=== PATIENT | male | born 1975 | race Hispanic/Latino ===

== ENCOUNTER 2025-04-01 21:15 | Emergency (ER) | payer OTHER, SELFPAY ==
[2025-04-01] MEDS ORDERED: MULTIVITAMINS 10 ML VIAL (INJ) IV ONE (22:14)
[2025-04-01] MEDS ORDERED: NA CHLORIDE 0.9% 2,000 ML ONE (22:14)
[2025-04-01] MEDS ORDERED: THIAMINE 200 MG/2 ML INJ ONE (22:16)
[2025-04-01] MEDS ORDERED: FOLIC ACID 5 MG/ML VIAL ONE ×2 (22:18→22:22)
[2025-04-01 22:33] LABS: Absolute Lymphocytes (CBC) 2.2 K/uL (0.7-4.9); Hematocrit 39.8 % (39.6-49.0); Hemoglobin 13.5 g/dL (13.6-17.9); MCH 30.6 pg (27.0-35.0); MCHC 34.0 g/dL (32.0-36.0); MCV 89.9 fL (80-100); MPV 8.8 fL (7.6-11.3); Nucleated RBC Absolute Count 0.0 (0-0); Nucleated Red Blood Cells % 0.0 % (0-0); PT Prothrombin Time 11.6 SECONDS (10-13.0); PTT, Activated Partial Thromb 29.6 SECONDS (27.2-37.4); Protime INR 1.03; RBC Red Blood Cell Count 4.42 M/uL (4.33-5.43); White Blood Count 6.50 thou/uL (4.3-10.9)
[2025-04-01 22:48] LABS: ALT/SGPT 26 U/L (16-61); AST/SGOT 26 U/L (15-37); Albumin 3.5 g/dL (3.4-5.0); Albumin/Globulin Ratio 1.0 (1.1-1.8); Alkaline Phosphatase 45 U/L (45-117); Anion Gap 6.8 mEq/L (5.0-15.0); BUN Blood Urea Nitrogen 18 mg/dL (7-18); Bilirubin Indirect, Calculated 0.7 mg/dL (0.2-0.8); Globulin 3.5 g/dL (2.3-3.5); Glucose Level 121 mg/dL (74-106); METHAMPHETAM NEGATIVE (NEGATIVE); Potassium 3.8 mEq/L (3.5-5.1); THC Cannibis NEGATIVE (NEGATIVE)
--- NOTE | 2025-04-01 23:01 | EDPHYS ---
Physician Documentation [facility] Name: Herman Betts Age: 49 yrs Sex: Male : 1975 Arrival Date: 04/01/2025 Time: 21:15 Bed 15 Private MD: ED Physician Toni Gutierrez HPI: 04/01 22:54 This 49 yrs old Male presents to ER via Law Enforcement with complaints of sb4 Psych Problem. 04/02 01:59 Patient was brought in via EMS with an ZEFERINO in place stating " appears stressed, sb4 paranoia, states a fear of police, wants to make a report to [facility] police, has no means of transport. Brother states he talks to himself, bipolar, schizophrenic, has violence with officers. Subject stated he was "waiting for them to land "would not explain who was landing. Patient is calm and cooperative upon arrival to the ED, denies any suicidal or homicidal ideation. Historical: - Allergies: 04/01 21:55 No Known Allergies; af3 - Home Meds: 21:55 None [Active]; af3 - PMHx: 04/02 00:00 Schizophrenia; Bipolar disorder; kd3 - Immunization history:: Adult Immunizations unknown. - Infectious Disease History:: Denies. - Social history:: Smoking status: unknown. ROS: 02:10 Constitutional: Negative for fever, chills, and weight loss, sb4 02:10 All other systems are negative, Exam: 02:10 Constitutional: This is a well developed, well nourished patient who is awake, alert, sb4 and in no acute distress. Head/Face: Normocephalic, atraumatic. Eyes: Extra-ocular motions intact. Periorbital areas with no swelling, redness, or edema. ENT: Mucous membranes moist. Respiratory: No increased work of breathing, no retractions or nasal flaring. Skin: Warm, dry with normal turgor. Normal color with no rashes, no lesions, and no evidence of cellulitis. 02:10 Psych: Behavior/mood is cooperative, Affect is calm, Oriented to person, place, time, Patient has no thoughts/intents to harm self or others. Vital Signs: 04/01 21:19 BP 149 / 96; Pulse 86; Resp 16; Temp 98.2; Pulse Ox 99% on R/A; af3 04/02 00:28 af3 00:28 Pt refused vitals af3 MDM: 04/01 21:20 Medical Screening Exam initiated sb4 04/02 02:10 Data reviewed: vital signs, nurses notes, lab test result(s), and as a result, I will sb4 discharge patient. Historians other than the Patient: Law enforcement: Arnulfo LOAIZA, officer [employer]co Gentile. Care significantly affected by the following Social Determinants of Health: Poor access to healthcare and/or lack of insurance, Poor access to transportation, Inadequate housing, Problems related to primary support group. Counseling: I had a detailed discussion with the patient and/or guardian regarding the historical points, exam findings, and any diagnostic results supporting the discharge/admit diagnosis, lab results, the need for outpatient follow up, for definitive care, to return to the emergency department if symptoms worsen or persist or if there are any questions or concerns that arise at home. ED course: Patient is not suicidal or homicidal. He displays appropriate decision-making skills. He does have a history of bipolar and schizophrenia but he is not in any acute crisis at this time. Will discharge at this time with community resources. 04/01 21:20 Order name: Acetaminophen; Complete Time: 23:00 sb4 04/01 21:20 Order name: Basic Metabolic Panel; Complete Time: 23:00 sb4 04/01 21:20 Order name: CBC with Diff; Complete Time: 22:47 sb4 04/01 21:20 Order name: ETOH Level; Complete Time: 22:47 sb4 04/01 21:20 Order name: Hepatic Function; Complete Time: 23:00 sb4 04/01 21:20 Order name: PT-INR; Complete Time: 22:33 sb4 04/01 21:20 Order name: Ptt, Activated; Complete Time: 22:33 sb4 04/01 21:20 Order name: Salicylate; Complete Time: 22:47 sb4 04/01 21:20 Order name: Urine Drug Screen; Complete Time: 22:52 sb4 04/01 21:20 Order name: EKG - Nurse/Tech; Complete Time: 22:17 sb4 04/01 21:20 Order name: IV Saline Lock; Complete Time: 22:17 sb4 04/01 21:20 Order name: Labs collected and sent; Complete Time: 22:17 sb4 04/01 21:20 Order name: Suicide Screening (Jeet); Complete Time: 22:17 sb4 EC04/01 22: Rate is 78 beats/min. Rhythm is regular, Sinus Rhythm. AL interval is normal at 172 sb4 msec. QRS interval is normal at 103 msec. QT interval is normal at 362 msec. No Q waves. T waves are Normal. No ST changes noted. Interpreted by me. Reviewed by me. Administered Medications: 22: Drug: NS 0.9% IV 1000 ml IV at 1000 ml once; to be given as a bolus over 60 minutes af3 Route: IV; Rate: 1000 ml; Site: right antecubital; 04/02 00:27 Follow up: Response: No adverse reaction; IV Status: Completed infusion; IV Intake: af3 1000ml 04/01 22:29 Drug: Banana Bag - (Multivitamin IV 1 amp, NS 0.9% IV 1000 ml, Thiamine IV 100 mg, af3 foLIC Acid IVPB 1 mg) IV at calculated rate once Route: IV; Rate: calculated rate; Site: right antecubital; 04/02 00:27 Follow up: Response: No adverse reaction; IV Status: Completed infusion; IV Intake: af3 1000ml Disposition: 20:13 Co-signature as Attending Physician, Toni Gutierrez MD I agree with the assessment sp4 and plan of care. I reviewed the patient's care provided by Advanced Practice Provider \\T\\ agree w/ the diagnosis \\T\\ care plan. I personally saw the pt \\T\\ performed a substantive portion of the visit, incldng all aspects of the (History/Exam/Medical Decision Making). Disposition Summary: 04/01/25 23:00 Discharge Ordered Notes: Location: Home sb4 Problem: new sb4 Symptoms: have improved sb4 Condition: Stable sb4 Diagnosis - Bipolar disorder, unspecified sb4 - Schizophrenia, unspecified sb4 Followup: sb4 - With: Private Physician - When: As needed - Reason: Recheck today's complaints, Re-evaluation by your physician Discharge Instructions: - Discharge Summary Sheet sb4 Forms: - Patient Portal Instructions sb4 - Leadership Thank You Letter sb4 Signatures: Dispatcher LeeMarilyn Reagan RN RN kd3 Jammie Monique PA-C PA-C sb4 Toni Gutierrez MD MD sp4 Tanya Neil RN RN af3 Corrections: (The following items were deleted from the chart) 04/01 21:21 21:21 ACETAMINOPHEN+C.LAB.BRZ ordered. EDMS EDMS 21:21 21:21 BASIC METABOLIC PANEL+C.LAB.BRZ ordered. EDMS EDMS 21:21 21:21 CBC+H.LAB.BRZ ordered. EDMS EDMS 21:21 21:21 ETHANOL+C.LAB.BRZ ordered. EDMS EDMS 21:21 21:21 HEPATIC FUNCTION+C.LAB.BRZ ordered. EDMS EDMS 21:21 21:21 PROTIME (+INR)+COAG.LAB.BRZ ordered. EDMS EDMS 21:21 21:21 PTT, ACTIVATED+COAG.LAB.BRZ ordered. EDMS EDMS 21:21 21:21 SALICYLATE+C.LAB.BRZ ordered. EDMS EDMS 21:21 21:21 URINE DRUG SCREEN+UC.LAB.BRZ ordered. EDMS EDMS 04/02 02:11 01:59 Patient was brought in via EMS with an ZEFERINO in place. sb4 sb4 06:52 04/01 21:55 PMHx: None; af3 kd3 04/02 06:52 00:00 PMHx: Schizophrenia; kd3 kd3
--- NOTE | 2025-04-01 23:01 | ER ---
Nurse's Notes [facility] Name: Herman Betts Age: 49 yrs Sex: Male : 1975 Arrival Date: 04/01/2025 Time: 21:15 Bed 15 Private MD: Diagnosis: Bipolar disorder, unspecified;Schizophrenia, unspecified Presentation: 04/01 21:19 Chief complaint: [place] [employer] states pt was dropped off at police station by brother, af3 has a history of prolonged drug use and brother claims pt has a history of schizophrenia, and bipolar, brother reported to police that pt had been drinking tonight. Coronavirus screen: At this time, the client does not indicate any symptoms associated with coronavirus-19. Ebola Screen: No symptoms or risks identified at this time. 21:19 Method Of Arrival: Law Enforcement: [facility] af3 21:19 Initial Sepsis Screen: Does the patient meet any 2 criteria? No. Patient's initial af3 sepsis screen is negative. Does the patient have a suspected source of infection? No. Patient's initial sepsis screen is negative. Risk Assessment: Do you want to hurt yourself or someone else? Patient reports no desire to harm self or others. Onset of symptoms was April 01, 2025. 21:19 Acuity: SHARRI 2 af3 Triage Assessment: 21:19 General: Appears in no apparent distress. uncomfortable, well groomed, well developed, af3 Behavior is calm, cooperative, appropriate for age. Pain: Denies pain. Neuro: Level of Consciousness is awake, alert, obeys commands, Oriented to person, place, time, situation, Appropriate for age. Cardiovascular: Patient's skin is warm and dry. Respiratory: Airway is patent Respiratory effort is even, unlabored, Respiratory pattern is regular, symmetrical. Derm: Skin is intact, Skin is pink, warm \T\ dry. normal. Historical: - Allergies: 21:55 No Known Allergies; af3 - Home Meds: 21:55 None [Active]; af3 - PMHx: 04/02 00:00 Schizophrenia; Bipolar disorder; kd3 - Immunization history:: Adult Immunizations unknown. - Infectious Disease History:: Denies. - Social history:: Smoking status: unknown. Screenin/19 21:20 [facility] ED Fall Risk Assessment (Adult) History of falling in the last 3 months, af3 including since admission No falls in past 3 months (0 pts) Confusion or Disorientation No (0 pts) Intoxicated or Sedated No (0 pts) Impaired Gait No (0 pts) Mobility Assist Device Used No (0 pt) Altered Elimination No (0 pt) Score/Fall Risk Level 0 - 2 = Low Risk Oriented to surroundings, Maintained a safe environment, Educated pt \T\ family on fall prevention, incl call for assistance when getting out of bed. 21:20 Abuse screen: Denies threats or abuse. Denies injuries from another. Nutritional af3 screening: No deficits noted. Tuberculosis screening: No symptoms or risk factors identified. Assessment: 21:25 General: see triage assessment. af3 Vital Signs: 21:19 BP 149 / 96; Pulse 86; Resp 16; Temp 98.2; Pulse Ox 99% on R/A; af3 04/02 00:28 af3 00:28 Pt refused vitals af3 ED Course: 04/01 21:19 Patient arrived in ED. sb4 21:19 Jammie Monique PA-C is PHCP. sb4 21:19 Toni Gutierrez MD is Attending Physician. sb4 21:19 Arm band placed on. af3 21:20 Patient has correct armband on for positive identification. Bed in low position. Call af3 light in reach. police at bedside. Provided Education on: plan of care . Patient is placed in psych hold. 21:31 Tanya Neil, RN is Primary Nurse. af3 21:55 Triage completed. af3 22:01 No provider procedures requiring assistance completed. af3 22:17 Initial lab(s) drawn, by electronic lab technician, sent to lab. Inserted saline lock: 20 gauge in right ts3 antecubital area, using aseptic technique. Blood collected. Flushed with 10 mL NS. 22:17 EKG done, by on call pharmacy technician. reviewed by Jammie Monique PA-C. ts3 22:17 Urine collected: clean catch specimen, sent to lab. ts3 04/02 00:29 IV discontinued, intact, bleeding controlled, No redness/swelling at site. Pressure af3 dressing applied. Administered Medications: 04/01 22:29 Drug: NS 0.9% IV 1000 ml IV at 1000 ml once; to be given as a bolus over 60 minutes af3 Route: IV; Rate: 1000 ml; Site: right antecubital; 04/02 00:27 Follow up: Response: No adverse reaction; IV Status: Completed infusion; IV Intake: af3 1000ml 04/01 22:29 Drug: Banana Bag - (Multivitamin IV 1 amp, NS 0.9% IV 1000 ml, Thiamine IV 100 mg, af3 foLIC Acid IVPB 1 mg) IV at calculated rate once Route: IV; Rate: calculated rate; Site: right antecubital; 04/02 00:27 Follow up: Response: No adverse reaction; IV Status: Completed infusion; IV Intake: af3 1000ml Medication: 04/01 22:01 VIS not applicable for this client. af3 Intake: 04/02 00:27 IV: 1000ml; Total: 1000ml. af3 00: IV: 1000ml; Total: 2000ml. af3 Outcome: 04/01 23:00 Discharge ordered by . sb4 04/02 00:28 Discharged to home ambulatory, with belongings af3 Condition: stable Discharge instructions given to patient, Instructed on discharge instructions, follow up and referral plans. Demonstrated understanding of instructions, follow-up care, 00:30 Patient left the ED. af3 Signatures: Marilyn Mack RN RN kd3 Jammie Monique PA-C PA-C sb4 Tanya Neil RN RN af3 Vielka Tinoco ts3 Corrections: (The following items were deleted from the chart) 06:52 04/01 21:55 PMHx: None; af3 kd3 04/02 06:52 00:00 PMHx: Schizophrenia; kd3 kd3
[2025-04-02 06:43] VITALS: BP 149/96; TEMP 98.2; O2SAT 99
== END 2025-04-02 00:30 | disposition home or self-care (01) ==
LOC: ER 21:15
DX: F25.0 Schizoaffective disorder, bipolar type (principal)
CPT/HCPCS: 96365; 93005; 85025; 80048; 36415; 85610; 80076; 85730; 80307; 99284; 96366; 80143; 80179; 82077; J3411; J7030